=== PATIENT | female | born 1955 | race Caucasian/White ===

== ENCOUNTER 2019-02-16 12:58 | Inpatient (IN) | payer BC ==
[~2019-02-16] VITALS: Ht 157.5 cm; Wt 59.0 kg
[2019-02-16] MEDS ORDERED: ELIQUIS (13:08)
--- NOTE | 2019-02-16 13:15 | NUR ---
Pt has hx of lung CA, had lung drained yesterday, increased SOB since yesterday, Rapid A-fib, c/o severe dyspnea, dizziness, and slight nausea.
[2019-02-16] MEDS ORDERED: DILTIAZEM HCL 25 MG IV ONE (13:29)
[2019-02-16] MEDS ORDERED: DILTIAZEM HCL IV 15 MG in IV DEXTROSE 5% 100 ML IV ONE (13:30)
[2019-02-16 13:34] LABS: ABG HCO3 22.3 mmol/L; ABG PCO2 40.6 mmHg (35.0-45.0); ABG PH 7.357 (7.350-7.450); ABG PO2 220.5 mmHg (75.0-100.0); ABG SITE LEFT RADIAL; ABG TOTAL HEMOGLOBIN 10.8 G/dL (13.5-18.0); MetHb 0.2 % (0.0-1.5); O2Hb 98.6 % (94.0-97.0)
[2019-02-16 13:37] LABS: HEMATOCRIT 31.4 % (36.7-47.1); HEMOGLOBIN 10.5 g/dL (12.5-16.3); LYMPHOCYTES # (AUTO) 0.6 K/uL (20.0-40.0); MEAN CORPUSCULAR HEMOGLOBIN 32.6 uug (23.8-33.4); MEAN CORPUSCULAR HGB CONC 33 g/dL (32.5-36.3); MEAN CORPUSCULAR VOLUME 97.6 fL (73.0-96.2); MONOCYTES # (AUTO) 0.3 K/uL (2.0-10.0); MONOCYTES % (AUTO) 3.5 % (0.0-11.0); NEUTROPHILS # (AUTO) 8.8 K/uL (1.8-8.9); NEUTROPHILS % (AUTO) 90.5 % (38.5-71.5); PLATELET COUNT (AUTO) 337 K/uL (152-348); RED BLOOD CELL COUNT(AUTO) 3.21 MIL/uL (4.06-5.63); WHITE BLOOD COUNT (AUTO) 9.7 K/uL (3.6-10.2)
[2019-02-16 13:46] LABS: CREATININE 0.8 mg/dL (0.6-1.3); POTASSIUM 3.6 mmol/L (3.5-5.1)
[2019-02-16 13:59] LABS: BILIRUBIN,DIRECT 0.1 mg/dL (0.0-0.2); BILIRUBIN,TOTAL 0.3 mg/dL (0.2-1.0); TOTAL PROTEIN, SERUM 8.1 g/dL (6.4-8.2)
[2019-02-16] MEDS ORDERED: FUROSEMIDE 40 MG/4 ML VIAL IV ONE (14:00)
[2019-02-16] MEDS ORDERED: DILTIAZEM HCL IV 125 MG in IV DEXTROSE 5% 100 ML IV ONE (14:00)
[2019-02-16] MEDS ORDERED: DILTIAZEM HCL 25 MG IV IV ONE (14:00)
[2019-02-16] MEDS ORDERED: FUROSEMIDE 40 MG/4 ML VIAL ONE (14:10)
--- NOTE | 2019-02-16 14:27 | NUR ---
Titrated Diltiazem rate to 10mls/hr.
--- NOTE | 2019-02-16 14:30 | NUR ---
Pt c/o "feeling worse," -- very tired and dizzy. informed.
[2019-02-16] MEDS ORDERED: ONDA8TAB6 PO (14:36)
[2019-02-16] MEDS ORDERED: SUCR1TAB31 PO (14:36)
[2019-02-16] MEDS ORDERED: BACL10TA PO (14:36)
[2019-02-16] MEDS ORDERED: BENZ-13 PO (14:36)
[2019-02-16] MEDS ORDERED: PROC-11 PO (14:36)
[2019-02-16] MEDS ORDERED: FOLI1TAB16 PO (14:36)
[2019-02-16] MEDS ORDERED: FLUT1DIS28 IH (14:36)
[2019-02-16] MEDS ORDERED: APIX5TAB PO (14:36)
[2019-02-16] MEDS ORDERED: LEVO75TA PO (14:36)
[2019-02-16] MEDS ORDERED: ESOM40CA PO (14:36)
[2019-02-16] MEDS ORDERED: METO25TA6 PO (14:36)
[2019-02-16] MEDS ORDERED: MAGNESIUM HYDROXIDE 30 ML LIQUID UDC PO PRN (14:45)
[2019-02-16] MEDS ORDERED: BENZONATATE 100 MG CAPSULE PO PRN (14:45)
[2019-02-16] MEDS ORDERED: HYDROCODONE/APAP 5-325MG TABLET PO PRN (14:45)
[2019-02-16] MEDS ORDERED: ACETAMINOPHEN 325 MG TABLET PO PRN (14:45)
[2019-02-16] MEDS ORDERED: Z GUARD REMEDY PASTE 57 GM TUBE TOP PRN (14:45)
[2019-02-16] MEDS ORDERED: BACLOFEN 10 MG TABLET PO PRN (14:45)
[2019-02-16] MEDS ORDERED: Medication Not On Formulary EA (Ondansetron Hcl (Zofran) 8 MG) PO SCH (14:45)
[2019-02-16] MEDS ORDERED: PROCHLORPERAZINE MALEATE 10 MG TABLET PO PRN (14:45)
--- NOTE | 2019-02-16 14:50 | NUR ---
Titrated Diltiazem rate to 15mls/hr.
[2019-02-16] MEDS ORDERED: FLUTICASONE/SALMETEROL 250/50 INHALER IH SCH (17:00)
--- NOTE | 2019-02-16 17:00 | NUR ---
Pt fernandez'ed down to 50's, informed, instructed to stop diltiazem drip, ceased. Pt appears to have converted from A-fib to sinus rhythm around 87bpm. Repeat EKG done and given to .
[2019-02-16 19:30] VITALS: BP 139/77
--- NOTE | 2019-02-16 19:35 | NUR ---
Received pt via lamin in CCU unit RM 4, HOB elevated, awake, AxO x4. DX: CHF EXACERBATION. at bedside. Pt breathing labored and shallow. Pt on nonrebreather mask 10L, O2 sats up to 100%. Tele placed and noted to be SR with HR of 95. Pt denies discomfort or pain at this time. Full assessment completed. VSS, afebrile. HOB elevated at all times. Call light within reach, safety precautions in place. Will continue to monitor closely.
--- NOTE | 2019-02-16 20:00 | NUR ---
at bedside and will stay overnight. Animal Husbandry Teacher aware. Visitor extended stay agreement signed and dated. Will continue to monitor.
[2019-02-16] MEDS: METOPROLOL TARTRATE 25 MG TABLET PO SCH (20:27)
[2019-02-16 21:00] VITALS: BP 161/92
[2019-02-16] MEDS: LORAZEPAM 2 MG/1 ML VIAL IV PRN (21:00)
[2019-02-16 22:00] VITALS: BP 119/73
[2019-02-16 23:00] VITALS: BP 156/77
[2019-02-17] VITALS (23 sets, daily range): BP systolic 94–163; BP diastolic 45–99
[2019-02-17] MEDS: LORAZEPAM 2 MG/1 ML VIAL IV PRN (04:34)
[2019-02-17 05:22] LABS: BASOPHILS % (AUTO) 0.1 % (0.0-2.0); HEMATOCRIT 29.6 % (31.2-41.9); HEMOGLOBIN 9.9 g/dL (10.9-14.3); LYMPHOCYTES # (AUTO) 1.3 K/uL (20.0-40.0); LYMPHOCYTES % (AUTO) 8.4 % (20.5-51.5); MEAN CORPUSCULAR HEMOGLOBIN 32.7 uug (24.7-32.8); MEAN CORPUSCULAR HGB CONC 33 g/dL (32.3-35.6); MEAN CORPUSCULAR VOLUME 98.1 fL (75.5-95.3); MONOCYTES # (AUTO) 1.9 K/uL (2.0-10.0); MONOCYTES % (AUTO) 12.1 % (0.0-11.0); NEUTROPHILS # (AUTO) 12.3 K/uL (1.8-8.9); NEUTROPHILS % (AUTO) 79.4 % (38.5-71.5); PLATELET COUNT (AUTO) 324 K/uL (179-408); RED BLOOD CELL COUNT(AUTO) 3.02 MIL/uL (3.63-4.92); WHITE BLOOD COUNT (AUTO) 15.5 K/uL (3.8-11.8)
[2019-02-17 05:28] LABS: CREATININE 0.7 mg/dL (0.6-1.3); MAGNESIUM 1.7 mg/dL (1.8-2.4); POTASSIUM 4.2 mmol/L (3.5-5.1)
--- NOTE | 2019-02-17 07:00 | NUR ---
Attending physician, DR MELARA, here to see and evaluate patient. Full report given. MD discussed plan of care with pt. Will endorse accordingly.
[2019-02-17] MEDS: LEVOTHYROXINE SODIUM 75 MCG TABLET PO SCH (07:01)
[2019-02-17] MEDS ORDERED: MAGNESIUM SULFATE/D5W 100 ML IV SCH (07:40)
[2019-02-17] MEDS ORDERED: DILTIAZEM HCL IV 125 MG in IV DEXTROSE 5% 100 ML IV PRN (08:15)
[2019-02-17] MEDS: DILTIAZEM HCL 25 MG IV IV PRN ×3 (08:22→14:52)
[2019-02-17] MEDS: FOLIC ACID 1 MG TABLET PO SCH (08:42)
[2019-02-17] MEDS: PANTOPRAZOLE SODIUM 40 MG TABLET.DR PO SCH (08:42)
[2019-02-17] MEDS: METOPROLOL TARTRATE 25 MG TABLET PO SCH ×2 (08:42→17:46)
[2019-02-17] MEDS ORDERED: APIXABAN 5 MG TABLET PO SCH (09:00)
[2019-02-17] MEDS ORDERED: SUCRALFATE 1 G TABLET PO SCH (09:00)
[2019-02-17] MEDS ORDERED: APIXABAN 5 MG TABLET PO ONE ×2 (09:00→17:00)
[2019-02-17] MEDS ORDERED: FLUTICASONE/VILANTEROL 1 EACH BLST.W.DEV INH SCH (09:00)
[2019-02-17] MEDS ORDERED: Medication Not On Formulary EA (Esomeprazole Mag Trihydrate (Nexium) 40 MG) PO SCH (09:00)
[2019-02-17] MEDS ORDERED: FUROSEMIDE 40 MG/4 ML VIAL IV ONE (09:15)
[2019-02-17 09:44] LABS: LYMPHOCYTES % (MANUAL) 10 % (20-40); MONOCYTES % (MANUAL) 18 % (2-10); NEUTROPHILS % (MANUAL) 72 % (42-75)
[2019-02-17] MEDS ORDERED: FUROSEMIDE 20 MG/2 ML VIAL IV ONE ×2 (13:15→21:00)
--- NOTE | 2019-02-17 13:45 | NUR ---
Spoke with Dr. Moody and made aware to see pt for consultation. Full report given to MD. Dr. Olea to follow up with consultation tomorrow.
[2019-02-17] MEDS: DILTIAZEM HCL IV 125 MG in IV DEXTROSE 5% 100 ML IV PRN (15:22)
[2019-02-18] VITALS (24 sets, daily range): BP systolic 77–143; BP diastolic 38–81
[2019-02-18] MEDS: LORAZEPAM 2 MG/1 ML VIAL IV PRN (01:11)
[2019-02-18] MEDS: DILTIAZEM HCL 25 MG IV IV PRN (01:23)
[2019-02-18] MEDS: DILTIAZEM HCL IV 125 MG in IV DEXTROSE 5% 100 ML IV PRN (02:15)
[2019-02-18 06:28] LABS: HEMATOCRIT 28.2 % (31.2-41.9); HEMOGLOBIN 9.3 g/dL (10.9-14.3); MEAN CORPUSCULAR HEMOGLOBIN 32.8 uug (24.7-32.8); MEAN CORPUSCULAR HGB CONC 33 g/dL (32.3-35.6); MEAN CORPUSCULAR VOLUME 99.3 fL (75.5-95.3); PLATELET COUNT (AUTO) 271 K/uL (179-408); RED BLOOD CELL COUNT(AUTO) 2.84 MIL/uL (3.63-4.92)
[2019-02-18 06:39] LABS: CREATININE 0.8 mg/dL (0.6-1.3); MAGNESIUM 1.6 mg/dL (1.8-2.4); PHOSPHOROUS 3.5 mg/dL (2.5-4.9); POTASSIUM 3.8 mmol/L (3.5-5.1)
[2019-02-18] MEDS ORDERED: SUCRALFATE 1 G TABLET PO SCH (07:00)
--- NOTE | 2019-02-18 07:20 | NUR ---
Received report from material handler 2nd shift nurse, patient in bed awake/alert x3, on 10L non-rebreather mask, patient is Afib w/rvr 155 hr, bp 77/55. Bed in low position, side rails up x2, call light in reach.
[2019-02-18] MEDS: PANTOPRAZOLE SODIUM 40 MG TABLET.DR PO SCH (07:57)
[2019-02-18] MEDS: LEVOTHYROXINE SODIUM 75 MCG TABLET PO SCH (07:57)
[2019-02-18] MEDS: BUDESONIDE 0.5 MG/2 ML NEBU NEB SCH ×2 (08:30→19:30)
[2019-02-18] MEDS: FOLIC ACID 1 MG TABLET PO SCH (08:46)
--- NOTE | 2019-02-18 09:00 | NUR ---
Patient seen by Dr. Olea, and Dr. Angela. Refer to notes.
[2019-02-18] MEDS: METOPROLOL TARTRATE 25 MG TABLET PO SCH ×2 (09:02→20:47)
[2019-02-18 09:23] LABS: NEUTROPHILS % (AUTO) 78.7 % (38.5-71.5)
[2019-02-18 09:24] LABS: LYMPHOCYTES % (AUTO) 4.9 % (20.5-51.5); MONOCYTES % (AUTO) 16.2 % (0.0-11.0)
[2019-02-18 09:25] LABS: BASOPHILS % (AUTO) 0.1 % (0.0-2.0); EOSINOPHILS % (AUTO) 0.1 % (0.0-7.0); NEUTROPHILS # (AUTO) 10.8 K/uL (1.8-8.9)
[2019-02-18 09:26] LABS: LYMPHOCYTES # (AUTO) 0.7 K/uL (20.0-40.0); MONOCYTES # (AUTO) 2.2 K/uL (2.0-10.0)
[2019-02-18 09:34] LABS: LYMPHOCYTES % (MANUAL) 1 % (20-40); MONOCYTES % (MANUAL) 16 % (2-10); NEUTROPHILS % (MANUAL) 83 % (42-75)
[2019-02-18] MEDS ORDERED: DIGOXIN 500 MCG/2 ML AMP IV ONE (09:45)
[2019-02-18] MEDS: MAGNESIUM SULFATE/D5W 100 ML IV SCH ×2 (10:19→11:14)
[2019-02-18] MEDS: APIXABAN 5 MG TABLET PO SCH ×2 (10:21→16:45)
[2019-02-18 12:13] LABS: *BLOOD, URINE 1+ (NEGATIVE); *COLOR,URINE YELLOW (YELLOW); *KETONES,URINE NEGATIVE (NEGATIVE); *UROBILINOGEN,URINE 0.2 E.U./dl (NORMAL); LEUKOCYTE ESTERASE ,URINE TRACE (NEGATIVE); NITRITE, URINE NEGATIVE (NEGATIVE); PH,URINE 5.5 (5.0-8.0); UGLUCOSE NEGATIVE (NEGATIVE)
[2019-02-18 12:17] LABS: *BILIRUBIN,URIN 1+ (NEGATIVE)
[2019-02-18 12:19] LABS: *CLARITY,URINE CLEAR (CLEAR)
[2019-02-18 12:23] LABS: MUCUS,URINE MODERATE /LPF (0-FEW); SQUAMOUS EPITHELIAL CELL,UR FEW /HPF (NONE SEEN)
[2019-02-18 12:24] LABS: BACTERIA,URINE FEW /HPF (NONE SEEN)
--- NOTE | 2019-02-18 12:40 | NUR ---
Patient was seen by Dr. Garvey and discussed in length the plan with patient and family.
[2019-02-18] MEDS: ENSURE WITH FIBER 237 ML LIQUID (CHOCOLATE) PO SCH ×2 (13:04→18:02)
[2019-02-18] MEDS: FUROSEMIDE 40 MG/4 ML VIAL IV SCH ×2 (14:06→20:47)
--- NOTE | 2019-02-18 14:20 | NUR ---
Contacted Dr. Angela regarding patient declining blood pressure, and urine results and decline in urine output. Received orders for lactic acid and rocephin 1g daily. No other orders received.
[2019-02-18] MEDS ORDERED: CEFTRIAXONE 1 G VIAL IM SCH (14:30)
--- NOTE | 2019-02-18 15:09 | NUR ---
received call from Dr. Olea, reported Ultrasound results.
[2019-02-18] MEDS: AMIODARONE HCL IV 900 MG in IV DEXTROSE 5% 482 ML IV PRN ×2 (15:17→16:45)
[2019-02-18] MEDS: CEFTRIAXONE 1 G in IV DEXTROSE 5% 50 ML IV SCH (15:17)
[2019-02-18] MEDS ORDERED: DIGOXIN 500 MCG/2 ML AMP IV SCH (16:00)
[2019-02-18] MEDS ORDERED: AMIODARONE HCL IV 150 MG in IV DEXTROSE 5% 100 ML IV ONE (17:15)
[2019-02-18] MEDS ORDERED: BACLOFEN 10 MG TABLET PO PRN (18:15)
[2019-02-18] MEDS ORDERED: BENZONATATE 100 MG CAPSULE PO PRN (18:15)
--- NOTE | 2019-02-18 19:22 | NUR ---
Gave report to shift stacker nurse, patient in bed awake/alert x4, patient continues to be on oxygen NC 5L, cardiac rhythm is afib 127 with amioderone drip @1mg, bed in low position, side rails up x2, call light in reach. Dr. Olea anticipates a thoracentesis tomorrow and all anticoagulation is to be held. [facility] possible transfer information given to oncoming nurse.
--- NOTE | 2019-02-18 20:00 | NUR ---
RECEIVED PT. AWAKE. ALERT & ORIENTED X4. DENIES PAIN THIS TIME. ON O2 @ 5LNC W/ HUMIDIFIER W/ O2 SAT OF 97%. ON AMIODARONE DRIP @ 1MG/HR ON MITCHELL PICC LINE. 2 PORT ARE PATENT.AFIB UNCONTROLLED. AFEBRILE. BP STABLE. NOT IN ANY DISTRESS.
--- NOTE | 2019-02-18 20:16 | NUR ---
Pt's refused HHN tx and want to talk to MD in the morning. JERRY kiran.
--- NOTE | 2019-02-18 22:00 | NUR ---
ASSISTED PT TO THE COMMODE. BRET CARE DONE BY HERSELF. REPOSITIONED IN BED FOR COMFORTS.NOT IN ANY DISTRESS.
--- NOTE | 2019-02-18 23:00 | NUR ---
[facility] CALLED THAT THERE IS NO AVAILABLE BED.
[2019-02-19] VITALS (23 sets, daily range): BP systolic 87–121; BP diastolic 44–63
[2019-02-19 04:58] LABS: BASOPHILS % (AUTO) 0.2 % (0.0-2.0); EOSINOPHILS # (AUTO) 0.1 K/uL (0.0-0.7); EOSINOPHILS % (AUTO) 0.8 % (0.0-7.0); HEMATOCRIT 26.6 % (31.2-41.9); HEMOGLOBIN 9.1 g/dL (10.9-14.3); LYMPHOCYTES # (AUTO) 0.9 K/uL (20.0-40.0); LYMPHOCYTES % (AUTO) 9.1 % (20.5-51.5); MEAN CORPUSCULAR HGB CONC 34 g/dL (32.3-35.6); MEAN CORPUSCULAR VOLUME 96.6 fL (75.5-95.3); MONOCYTES # (AUTO) 1.7 K/uL (2.0-10.0); MONOCYTES % (AUTO) 16.6 % (0.0-11.0); NEUTROPHILS # (AUTO) 7.4 K/uL (1.8-8.9); NEUTROPHILS % (AUTO) 73.3 % (38.5-71.5); PLATELET COUNT (AUTO) 273 K/uL (179-408); RED BLOOD CELL COUNT(AUTO) 2.76 MIL/uL (3.63-4.92); WHITE BLOOD COUNT (AUTO) 10.1 K/uL (3.8-11.8)
[2019-02-19 05:03] LABS: CREATININE 0.8 mg/dL (0.6-1.3); MAGNESIUM 1.8 mg/dL (1.8-2.4); PHOSPHOROUS 2.7 mg/dL (2.5-4.9)
--- NOTE | 2019-02-19 05:30 | NUR ---
PT. SLEPT WELL. REMAINS ON SR W/ BBB. AMIODARONE DRIP STILL @0.5MG/HR. OFFERED AM CARE STATED LATER. NOT IN ANY DISTRESS.
[2019-02-19 06:14] LABS: BAND % (MANUAL) 1 % (0-10); EOSINOPHILS % (MANUAL) 2 % (0-8); LYMPHOCYTES % (MANUAL) 6 % (20-40); METAMYELOCYTES % 1 % (0-1); MONOCYTES % (MANUAL) 10 % (2-10); NEUTROPHILS % (MANUAL) 80 % (42-75)
[2019-02-19] MEDS: LEVOTHYROXINE SODIUM 75 MCG TABLET PO SCH (06:18)
[2019-02-19] MEDS: PANTOPRAZOLE SODIUM 40 MG TABLET.DR PO SCH (06:42)
--- NOTE | 2019-02-19 07:20 | NUR ---
Received report from manufacturing technology analyst nurse, patient in bed awake, no distress noted at this time. Patient is on 02 4L nasal cannula saturating 97%, IV amioderone running @0.5MG/HR. Patient is in Sinus rhythm with BBB Rate of 89. Bed in low position, side rails up x2, call light in reach.
[2019-02-19] MEDS: BUDESONIDE 0.5 MG/2 ML NEBU NEB SCH ×2 (07:30→20:35)
[2019-02-19] MEDS: ONDANSETRON 4 MG/2 ML VIAL IV PRN (07:34)
--- NOTE | 2019-02-19 07:45 | NUR ---
Patient up at commode with a BM x1, and upon return to bed had an episode of emesis x1, zofran given.
--- NOTE | 2019-02-19 07:58 | NUR ---
Patient seen by Dr. Olea and was explained the thoracentesis process.
[2019-02-19] MEDS: FUROSEMIDE 40 MG/4 ML VIAL IV SCH ×3 (08:41→21:00)
[2019-02-19] MEDS: FOLIC ACID 1 MG TABLET PO SCH (08:41)
[2019-02-19] MEDS: METOPROLOL TARTRATE 25 MG TABLET PO SCH ×2 (08:42→20:35)
--- NOTE | 2019-02-19 08:45 | NUR ---
Patient seen by Rodger Harris.
[2019-02-19] MEDS: APIXABAN 5 MG TABLET PO SCH ×2 (08:48→17:00)
[2019-02-19] MEDS ORDERED: DIGOXIN 125 MCG TABLET PO SCH (09:00)
[2019-02-19] MEDS: ENSURE WITH FIBER 237 ML LIQUID (CHOCOLATE) PO SCH ×3 (09:31→17:20)
[2019-02-19] MEDS: PROCHLORPERAZINE MALEATE 10 MG TABLET PO PRN (10:55)
[2019-02-19] MEDS: NYSTATIN SUSPENSION 5 ML LIQUID UDC PO SCH ×3 (10:55→20:34)
--- NOTE | 2019-02-19 11:40 | NUR ---
Thoracentesis performed by Dr. Lovell and [facility]. 1L of fluid removed and three specimens sent to lab as ordered.
[2019-02-19] MEDS ORDERED: POTASSIUM CHLORIDE 20 MEQ TAB.PRT.SR PO ONE (11:45)
[2019-02-19] MEDS: AMIODARONE HCL 200 MG TABLET PO SCH ×2 (14:02→21:14)
[2019-02-19] MEDS: POTASSIUM CHLORIDE 10 MEQ, LIDOCAINE-MPF 1% 1 ML in IV DEXTROSE 5% 100 ML IV SCH ×2 (14:28→15:44)
[2019-02-19] MEDS: CEFTRIAXONE 1 G in IV DEXTROSE 5% 50 ML IV SCH (15:45)
--- NOTE | 2019-02-19 19:30 | NUR ---
Report received. Patient admitted 02/16/2019 for CHF exacerbation. AAO, assisted up to [facility]; voided. Back to bed and brushed her teeth without SOB or dizziness. Patient states she's feeling better after today's thoracentesis. O2 4 L NC continuously. Assessment done; see flow sheet for completed data. Addendum: 02/19/19 at 2205 by BONNIE RODRIGUEZ RN Amended: Links added. Addendum: 02/19/19 at 2212 by BONNIE RODRIGUEZ RN Amended: Links added. Addendum: 02/19/19 at 2215 by BONNIE RODRIGUEZ RN Amended: Links added. Addendum: 02/19/19 at 2219 by BONNIE RODRIGUEZ RN Amended: Links added. Addendum: 02/19/19 at 2220 by BONNIE RODRIGUEZ RN Amended: Links added.
--- NOTE | 2019-02-19 19:33 | NUR ---
Patient currently in bed resting, no distress noted at this time. Patient oxygen saturation 99% on 4L nasal cannula. Call light in reach, bed in low position, side rails up x2. HR stable sinus rhythm with bundle branch block 90 bpm. All needs met. Report given to smith shift nurse. BP 102/54.
--- NOTE | 2019-02-19 20:20 | NUR ---
PCXR done. Addendum: 02/19/19 at 2212 by BONNIE RODRIGUEZ RN Amended: Aria added. Addendum: 02/19/19 at 2214 by BONNIE RODRIGUEZ RN Amended: Aria added. Addendum: 02/19/19 at 2218 by BONNIE RODRIGUEZ RN Amended: Links added. Addendum: 02/19/19 at 2220 by BONNIE RODRIGUEZ RN Amended: Links added.
[2019-02-19] MEDS: DOXYCYCLINE HYCLATE 100 MG TABLET PO SCH (20:34)
--- NOTE | 2019-02-19 21:00 | NUR ---
Refused dose of Lasix IV; med was discarded as it was already drawn up. Addendum: 02/19/19 at 2219 by BONNIE RODRIGUEZ RN Amended: Links added. Addendum: 02/19/19 at 2220 by BONNIE RODRIGUEZ RN Amended: Links added.
--- NOTE | 2019-02-19 21:20 | NUR ---
Results of CXR called to Dr. Otero. Informed of another CXR in am and patient's status. Also made aware that patient refused Lasix dose for tonight. No new orders. Addendum: 02/19/19 at 2215 by BONNIE RODRIGUEZ RN Amended: Links added. Addendum: 02/19/19 at 2219 by BONNIE RODRIGUEZ RN Amended: Links added. Addendum: 02/19/19 at 2220 by BONNIE RODRIGUEZ RN Amended: Links added.
--- NOTE | 2019-02-19 22:20 | NUR ---
Sleeping at intervals. VS stable. at bedside. Addendum: 02/19/19 at 2220 by BONNIE RODRIGUEZ RN Amended: Links added.
--- NOTE | 2019-02-19 23:30 | NUR ---
Juanita EDWARDS from [facility] called. No bed available yet. Patient and patient's informed. Addendum: 02/20/19 at 0003 by BONNIE RODRIGUEZ RN Amended: Links added.
[2019-02-20] VITALS (24 sets, daily range): BP systolic 90–121; BP diastolic 25–65
[2019-02-20 04:58] LABS: BASOPHILS % (AUTO) 0.3 % (0.0-2.0); EOSINOPHILS # (AUTO) 0.2 K/uL (0.0-0.7); EOSINOPHILS % (AUTO) 2.4 % (0.0-7.0); HEMATOCRIT 27.4 % (31.2-41.9); HEMOGLOBIN 9.1 g/dL (10.9-14.3); LYMPHOCYTES % (AUTO) 12.1 % (20.5-51.5); MEAN CORPUSCULAR HEMOGLOBIN 32.4 uug (24.7-32.8); MEAN CORPUSCULAR HGB CONC 33 g/dL (32.3-35.6); MEAN CORPUSCULAR VOLUME 97.5 fL (75.5-95.3); MONOCYTES # (AUTO) 1.3 K/uL (2.0-10.0); MONOCYTES % (AUTO) 16.4 % (0.0-11.0); NEUTROPHILS # (AUTO) 5.5 K/uL (1.8-8.9); NEUTROPHILS % (AUTO) 68.8 % (38.5-71.5); PLATELET COUNT (AUTO) 287 K/uL (179-408); RED BLOOD CELL COUNT(AUTO) 2.81 MIL/uL (3.63-4.92)
[2019-02-20 05:08] LABS: CREATININE 0.8 mg/dL (0.6-1.3); MAGNESIUM 1.6 mg/dL (1.8-2.4); PHOSPHOROUS 2.7 mg/dL (2.5-4.9); POTASSIUM 3.4 mmol/L (3.5-5.1)
[2019-02-20] MEDS: IV NORMAL SALINE 250 ML IV PRN (05:46)
[2019-02-20] MEDS: LEVOTHYROXINE SODIUM 75 MCG TABLET PO SCH (06:26)
[2019-02-20] MEDS: PANTOPRAZOLE SODIUM 40 MG TABLET.DR PO SCH (06:26)
--- NOTE | 2019-02-20 07:00 | NUR ---
VS Stable. Sat maintaining above 95% on 4 L NC. Up to BSC with assist.
[2019-02-20] MEDS: ONDANSETRON 4 MG/2 ML VIAL IV PRN ×2 (07:20→14:26)
[2019-02-20 07:23] LABS: BAND % (MANUAL) 3 % (0-10); EOSINOPHILS % (MANUAL) 3 % (0-8); LYMPHOCYTES % (MANUAL) 16 % (20-40); MONOCYTES % (MANUAL) 18 % (2-10); NEUTROPHILS % (MANUAL) 60 % (42-75)
[2019-02-20] MEDS: BUDESONIDE 0.5 MG/2 ML NEBU NEB SCH ×2 (07:29→19:50)
--- NOTE | 2019-02-20 07:30 | NUR ---
PT.IN BED ,A/A/O NO S/S OF ACUTE DISTRESS,DENIES ANY PAIN.
--- NOTE | 2019-02-20 08:00 | NUR ---
Pt.was seen by with new orders, family at bedside,was updated with pt.condition and plan of care.
[2019-02-20] MEDS: NYSTATIN SUSPENSION 5 ML LIQUID UDC PO SCH ×4 (08:01→20:59)
[2019-02-20] MEDS: PROCHLORPERAZINE MALEATE 10 MG TABLET PO PRN ×2 (08:01→16:41)
[2019-02-20] MEDS: DOXYCYCLINE HYCLATE 100 MG TABLET PO SCH ×2 (08:02→21:00)
[2019-02-20] MEDS: APIXABAN 5 MG TABLET PO SCH (08:03)
[2019-02-20] MEDS: ENSURE WITH FIBER 237 ML LIQUID (CHOCOLATE) PO SCH ×3 (08:04→16:43)
[2019-02-20] MEDS: FOLIC ACID 1 MG TABLET PO SCH (08:06)
[2019-02-20] MEDS: FUROSEMIDE 40 MG/4 ML VIAL IV SCH (08:06)
[2019-02-20] MEDS: AMIODARONE HCL 200 MG TABLET PO SCH ×2 (08:06→20:59)
[2019-02-20] MEDS: METOPROLOL TARTRATE 25 MG TABLET PO SCH ×2 (08:07→20:59)
[2019-02-20] MEDS: POTASSIUM CHLORIDE 20 MEQ TAB.PRT.SR PO SCH ×2 (08:19→16:43)
[2019-02-20] MEDS: MAGNESIUM SULFATE/D5W 100 ML IV SCH ×2 (08:19→09:19)
--- NOTE | 2019-02-20 12:26 | NUR ---
Pt.watching TV ,reading ,denies any discomfort or CP,no s/s of SOB.
[2019-02-20] MEDS: CEFTRIAXONE 1 G in IV DEXTROSE 5% 50 ML IV SCH (14:19)
--- NOTE | 2019-02-20 14:34 | NUR ---
Pt.sleeping,no s/s of distress.
--- NOTE | 2019-02-20 17:00 | NUR ---
Post sponge bath,tolerated well. SOB on exertion noted.
--- NOTE | 2019-02-20 18:22 | NUR ---
Family at bedside ,watching TV.
--- NOTE | 2019-02-20 19:30 | NUR ---
Patient AURELIA NAD noted; on 6L NC O2. Saturations 99-100%. Plan of care discussed. Patient c/o that the Vibramycin po is causing her stomach upset that she can not eat. Patient reassured that her concerns will be discussed with MD. Assessment completed; see flow sheet for details. details.[id number]14810497918647440102418769 78554705227188614937155997065589184633476096599503772174222826329434661253978338458306936299 51273857905188971013502405365692778999454918597401331827873128967153588981826880172924977620 07074693186143731529602384619660461549031952535856924669564407823995202192616881654719721078 73768423711421390651460939569818828456531892982976913049019609992881112631408660819633367249 46114679652845497025273627537954604548701627562053248633755785163833449395629069237723371504 34873846262919127099075782180129055802350245435173786061012315270161231038058335571867849545 75319321216576634337842382288398764451091330437392249550845775509003106844029935701369478340 39169751092906578111956767864124126317467786451645914421528370231092169348835262403426622438 50386469624086916261695967682098343416593413352120073759046851377578852469165144613848279197 38635375006084396745131521978250733905018484221858169393790231882485407606771789272652705762 25161974515922570225807868200177304052322145891441290343839283588510409504098457714160094142 31101522853828809710939045487691719345332221568867087764916221309722021410448029375564155148 58813323958800993913368714296200909961499512422793227922145421408705311804952768012661868053 00075586967062789310786093324346205785711516150629070816646880067839010762632593862702433723 36075894175785057335227710969529721121365830602958344394431145978398035242679155536625544737 41107621553117622080217925144724746189361867589204917908728997644439552876480022313590379304 74836736617076825330890741235112577475002029200274288674762867039559898751716098892702807898 64693386967450414784613321847544633570633355127581944907108651181997457535270019165124797466 85789692039418145732114244148197070412770959001162605434589918727478985216778881403828727476 67747713608073558899188624156130929666668957451636472258064226879853725539024871332620269651 48054232291363815936424951247936744839434709927671086920045805144890190420973120173107905446 40757946214453201687977823149062334735898619139577628706535852626923122074788231312654069957 03044315094274071531364964037312296755797708379947641851798119326455746243096125062900311317 56042222150944937173639062473439785863907758422017382894244718187670206822697174392499796049 83361289676282608065289369903766141989609776786434950758037909225664725461374256026753394666 21799843900369427683784256429724902843532930347430078839413441815540203912273939611304453468 81413675294787857454416872341892345263078773061570382893895330541932764488318069877154991061 22530187349458377131528746656673455367153969832495687427357329511703546920961847643987686171 44483565740974461213163780525261078080032836570842200382744169663518452384556267871408525716 24131050435623294133900665215356256994237901858656428695620709389525984813226055612329541177 40875659361508122318206244810735356224562959317001331467943084664893428813494255889631136657 94728766758562554499660703676325682925847770580874264100126200932658924559362401706066654808 59728230612066921042307607039337681485268047258626909096123614673378038200722398035236298319 02618577748215721256131637817437238493012418956096923618302356381151545848125332460982836505 87556899023523043970601524249228124241327084383215622309286482379849224724046083960536845877 84672527752702673200906528024609801438342893260080417091143631040169288324621956316279901679 27454483265974782653736612196633162059701225740173314112511945093147379273087475439176753916 97072903481206328782798704469121053858201771049692244008849394913836306360094096858351652008 09924886078973897530911227332851585768663135282400636223022791447328228754252294015609884477 31497851456433837063105530638832879373439167669621331694301019124472998478378892203947794340 60520336468012728365331636887090680072072139411933729698365675764022648028960861636776463509 44993589579266667603238465946495189771468718003230788296997525255658578231916103289916943929 76350357600945907131008269600529437895940933647848057934582779122540029057263711381967368677 97712447516132134995991106465230514371150112864220371368240094048379631404968609037224182978 00497768655254908167920401529970543658930426684181464015967591299805951610217815158055171799 66138388757687210120911454638057574177223755435365331950283295137750979066916505733714606152 17381174509557365967633815415522851608389885798494411334502139887776260900757474480420892882 48421742376846887766789991266121948192033365597192277925893399818125938597661590975079320652 53332718109682416623694726050339977497529549554930221631526074880014922480998812786940729600 37627633871830202018526182443295380381643581574280669427155454841804589868655449876918845203 35311119284749717501299479464226652533227632337159324908917781360647487227768158108508172538 67700722416794346043068546217430389464723111094962969912281612204699451152560793318627100394 11166302595555954595218001038773737451526152369561337532187545091474025142443902891572846792 77811588931493758775843414337227155795820594384701745440431491437525924896708171070067326169 27886198547045086256896382227325491492663042839227092870289888037601186961993934799772353684 55645543665254671800908808013679337717836759717871157699474831915615196893235415813088026368 95290745180960552604199864413964156500349219659278212075408822092552521876256448449007150365 48906842934689123563296715078611657234612933459953253315265290877802034660424507496598041721 88021805105181850186963883310811708467954922597795721375747600880675760282674270270610837566 41331427166089537518190616232942623458198379822154546117633866977838363358159985906684674604 06972885479637058911529692371913273841579161693113252547364556792454205114497436577368599973 82360388461446048198210923049438232596910369710398203804480295603306350309062962745662928338 10323920789375862387913101568702831577358451910625104508877483773868972966818666785414563127 64450034573703607876226058124885045021416536589202782259928623295237302566838958624736269351 45580631381323915468739532876868021915635157458119889103608794906975915010863176285712975933 46451480603233636930733459262860970729725445447910558912919767732577026960919285875808851708 70381388371833387707525574319093550402964701287782165376512082586743024967953735014586644067 21387717419910418074774378926806415127240001277537666871637210730780670562408321927551732204 82624129295493212753107464420394926080853602383468743521510626680029967202215254321345525574 98783936809787995850736646714854829890949795602409591388470642559803076848644218114154061198 74236559342401466607865958583436134767786645850100284266127596084241985839908550627706714475 49059668524840084916977042965417350361523037799008507329776529574757679424562207333908436398 68012128730927823031606368285207193950232360381031542155352921982746501426906044769935939538 77457485494190446434071817170051583808974829484690965085264672606148520128375984879240326252 95583141068051936335506452377634475663520280319018734120965746598268128409289336554313685793 18655710277562298862252463726882377889910949007892000963414957284569828647217261662974019090 82713974286279739792944059237431182345425797975995566104676561875697874073294614764694981808 27216683481897574531082359523781955003746558316396931628174108303643843003489348876099339584 38111596845315840180602531802185946396324613014634825968995852642024042215165202556033723226 77835318794815982436249580026739109905099728396438477724683820786412559896061373367571182849 82834196850800151981854596668459854870531267944914732260544279289466702146168223644074953212 19092667942382706493079910115743090764212383894377964134912847545284420888649058611486128135 79558515157659094606170847269760098717856032894910170937298850343415859022819147551873640747 39316058502146138316244645419465291994199216406413309163075652106028184144035379819222478798 65433496826655756085990329937410773316831369152248376520949942456286348005755432091568901800 06358153391169974914882071116069667456702780822019631889842657777334720688322188539219398298 47538154702221974657052050624729072935852301357135078703970641254057514715677689393774382369 22425009150256508758383302375147396741604902558671958885892846693396244733393310649987640365 43353279913902873077802140538398300247028772543059588326319921594746212664588662202553715623 99433298489697536433890184027616824610555896495159215180103686637072484181638222008960539076 71838802688270268613501333937601010344726417553228168026565135528452145929484836665038940537 24880690420082923692127430077461924975535750625689872793122347982378469757620561050550814511 84524932745758169265930893193721294178393426132639989100051544222858884196339901761829398188 37228233367041433676218591454090821728273199201682454350750608360798636314338305009772637335 92461401199626953382318265113705588061183258677206960379743837662372590479783794621234495978 17567623969648486042955943983396292990655780867907831971067488241114772162470386292727935904 24305102789038920957663312074370655878829216207141788726348685225194248383084051383917484495 14170403412418620127228052753723890074239009325904291881632390350147434937983971727397151453 79916543040348430109521845397437900538708261128934819982933998088032265494577731950679068650 22912853052712074748422528673408148468781091516272243924559471628408634103745350980680198503 91237192465697785203236384829543766131157448269286216519609013636923164920350167014682254002 11768910697338196853462266830232360303372931671385641097750116745133066381275481602981870730 95195107125667910347823249675797431496338867013116538525616119945207055863575252415988115913 08558697703540915984938637481828517054029817700132729802411305433164588431623592704545382667 86613849132786334592570390097139759755886960756736783139466560601403018530607523197208359402 18551820444131984326779941368200034235660142809283597123943545578016537016835234621758458377 55435273785846274552323238827991970303297741843012994863821949596390871653514016695603057368 99963449382250931486175434553307057250559574259272412672883265642322180146811650373615138061 40801584026295406647952446488911480597353041529089718244345689160312145750942715042981577967 18055228027152368803985212756577383029066834883413396458353484331066592118598396022128780554 02562781280345451028675032437064248279956144275270413418654135610077597403117215467297528100 08153391882720259808026103717246470237148791854674155720962344532510891260697019642269792648 04598158275666596794519575664578119847586930312723460349816910387065037966743567070509326231 78236095933564731619310534545743677641494486058274389090935908521926165444424156979840626717 88992395157810360982414203081765775855472881264124009648528597513305637134241832237500933381 55252401794355136811436830404029448461790355119718810271165576470863740002982205502496713999 12957703633966163742697155218293287596792351687324100132295230673077386288439821082952699512 87976795495358183313258877966269484363853329534060296097838880507339341145561732564173414344 88877341598883841021273450258825745975572340962947277703024755955600477974105851193873803519 26236034803121839978488701997573215209945368439252334568668081716526736291586787823919155060 29154887884200284207790712491844972741287348746442905023046936737936617259013386978757494998 78913808751686332150381372843776753340820748874981829318824637918477311707432957597790184437 65692024344378512901255161636328862513586982921573048028876560688550363894085981064915846050 12875396692465323414064252818920612679387826531328685453326621013348330175991669548733781312 98107456765479120758454286730247399714147604566239215736911884380829548500939485134800207884 00802260694785731173741045632081775019719819855531824592087244468470663068959975430699214969 25742269466042222099160074803770221605439460061960172048722623735384430917010426327077822356 46967306924956772070079078165095251743864429428313278730892510114245561280741321909777184150 54897041128734703400011344390964706712840499490087419772850997580222031687180129014969731777 17645910169712101156627689480996583007770907419802884517367623580812210805305530332150136676 63055166931472093940424625992836434829321222074128256063266353338475297698481049094349299429 25707659252107264442255787901966472977737919134618959353577149751090665493398382464551574492 17003985767634378343040303656611974445605063042049660456540873761157165616704166482272348412 56613762626584682130893857452270776688882332836726110370893118911132146620072477307203778428 46336211831661369709332338234742055806231356427039836033815112693757693556776521610184421309 06367409138243250487960941106239725531536595722409148307414085425146079963428709237527630845 43343643401337457105399708361191573781368702201947899120020964895620949630177119202945352340 72758590645236254584175619497674140505934140316452486042225916083433454291995389784547972765 02828072610670760129616025998103563746727736974404522555462076549219104846003293123961011684 59872302245618666425390123164732056656148634225058500222482446517670711058168370088710877543 18383762688534182434961018384886475688040922280891158909115690692525419872028717560152831200 53875376616318505880988195843771249509582442172113203054364756545694272211797207314071892773 70996366589869216318167265113379044929362038057910009462869121407747859287815551636131432451 60122090980759563185985774173891799272750968804732104350006999347361826748151988094516282781 11675948105118811238983824823640853530856623933612053270081410214406417292725668036755291909 82599970020916730862057586548530372489532537082376318766852869550518090193427151197181971303 14557698146979159209197428571976679487810533475702847435776709002196579266284813508787077334 37759266086876286005877724771553029877827105526170672611118601994438382049604005123075524801 00965667379441551290187087302537241702760983390523556892436658269264421180396705055534219987 70391873531969761735740261079583340826316846089587456173111688532486105235621672755728803783 22116973008641766682574672832868714050273893747177688224002180845958873130564459706183695967 27945491685103985964508969106044852080212352320008553496060254691654427416184743539143355301 66510613402887280212052564200751589404364845384108623918621918347705668377686661460628925176 33374808037831320639596133652101462793373360092338174401969905692807385766780565993279362165 86819289014641918276259725544395664863155595036022549988627762155636211263710581604165713983 30563242275992716266897974657219178862269861699419738525949695425604790609948823031482821246 87146762630397569304225947777810004237789812352895507563654167697103408004954467971766690558 89532557192936201432551616580625175234471217056401764603306376371789071963501281147142222784 49566047205684225576610592590797834924095435514315140855404481107694675600497434728797187697 68373966405137687238031259818134069692459569815431371364729978593340641673571540596668907946 60925680937644481320498812516185445673502757819894750187461968969899690898991218274337785504 22371698354238289775156404148519593165315942732424346358761675024751123568502676173689084248 56981058992961169907647463447286482264212464707521130667366974735486948059010948634949099213 11577702222681614003080118177458307096783169197347758037437543742948162082963075183672507500 71586362433748207412317155946276146649346948967949222936962822963167899341795685640704490740 33229758768708860586853663546019629682466020848590330560985447433203761175505958468910031361 94374435637453100775379415346464711174332046996287014080468952900029780503459128866033109424 00628377391257366747454054551177825754331941413826069529891826702084989200649223348756658164 64817166963593798807707860841979033979784256945405759855101661614322046316285575986657231477 56132147709315637812213720488596669235635804010035611090320715092682516146781043026237379443 95969893130352724744133279343365135080808688401592134789746604483292467825855118393658001179 03756900986711190851986885795824732783710134435313472214184783871471896472267033711842853140 79683862798979719878126007722059096034722632295348979928874794335748475043293906033831272095 25881985302078287055978214852367043874020066650052227112891350066834968717780471232997248421 97077821429444921663550176950641236349100676718833497689505954665265993289900313796628423446 68045909635423857865334500950940279401283740102068363107533424159356654863032099063827555218 55741096122342352405617921706545361730772386635297981598964942508352297576497348230024105941 50194718395285610962548565837701498373190953511264533978933747015255170443227905035641373771 04334855004979343815016230858769542170159606469585714192208214298171973929201984965763124913 65943302670366619583885341053321995592139894342658869092378729873850653833201873514725998540 73051441054072403964481169086909595087970767044735724179664527097458405273040542250699507649 99116800560317590748160153268710403003350750478238257919782384635084188652849419300322764699 32699847140278446769796488983511671349541700946465176227312538639862596389687734796713787604 01654460575938763598308322085870970848996412779590002245862096235648434209551805062307835870 83873622518675397672976428061527666914833839887725561299647627867563229398654557280284772401 46990845900567534536241245877742756036200922278697004471393959335951057233296914333602685400 67934758445203547445036794437057560318828574003573590151564743418400973332627333865749782243 21806922426861729913119122451448362758081936146515843405707500061660892983974710746018531072 09211572052931233988838856729738869274231758588832714904234550310894861511043471610366296532 48000936529568857524253651109454582686724894528239769989179368296892657866642161792827536322 59285249634306346677957879072341508374697310758949387794989420301975045036908198702072692690 46948459645029909489434622843087996366136975752561399911359240730765046501791124055834952102 86312769500518297608662573473799081254713489927890728438594148681387720590412101240337132922 84658203923913290182079419561837179032880139991076431407215707866824118165747595580344974567 05100733770327980445667202303920114840975408920702249860022141805397656353155302930450572896 70647452580672930014870097665966310372120065919706931337150375603993372371107734256502465080 90688874147156067356730792143045445501554009370266717904304473996532278613856194507077099994 80916107596972537297482360837861149062360094906934092614196865675272143172504616111710996593 90859617087142637655797522258200192537437354523336454412575986427132624985521983896025080926 04647721697209900363958190169412520127972307341531131690456196238536223173457870760487770354 76077510651731957342768589584748874154393772554902[id number] Addendum: 02/20/19 at 2215 by BONNIE RODRIGUEZ RN Amended: Aria marx. Addendum: 02/20/19 at 2218 by BONNIE RODRIGUEZ RN Amended: Links added.
--- NOTE | 2019-02-20 20:20 | NUR ---
Spoke to Rodger Harris re: patient's request not to take Vibramycin po tonight because it causes her to have GI upset. He okayed to skip dose tonight and he will review med in am. Rodger also informed of CXR result; no change in pneumothorax. Addendum: 02/20/19 at 2032 by BONNIE RODRIGUEZ RN Amended: Links added.
--- NOTE | 2019-02-20 20:30 | NUR ---
Seen by Dr. Walter; plan of care discussed. Addendum: 02/20/19 at 2218 by BONNIE RODRIGUEZ RN Amended: Links added.
[2019-02-20] MEDS ORDERED: FUROSEMIDE 40 MG/4 ML VIAL IV SCH (20:45)
[2019-02-20] MEDS: CULTURELLE CAPSULE PO SCH (20:59)
[2019-02-21] VITALS (22 sets, daily range): BP systolic 92–140; BP diastolic 44–86
--- NOTE | 2019-02-21 | NUR ---
Sleeping on and off. VS stable.
[2019-02-21] MEDS: IV NORMAL SALINE 250 ML IV PRN (04:24)
[2019-02-21 05:00] LABS: BASOPHILS % (AUTO) 0.4 % (0.0-2.0); EOSINOPHILS # (AUTO) 0.3 K/uL (0.0-0.7); EOSINOPHILS % (AUTO) 3.8 % (0.0-7.0); HEMATOCRIT 26.1 % (31.2-41.9); HEMOGLOBIN 8.7 g/dL (10.9-14.3); LYMPHOCYTES # (AUTO) 0.9 K/uL (20.0-40.0); LYMPHOCYTES % (AUTO) 12.8 % (20.5-51.5); MEAN CORPUSCULAR HEMOGLOBIN 32.3 uug (24.7-32.8); MEAN CORPUSCULAR HGB CONC 33 g/dL (32.3-35.6); MEAN CORPUSCULAR VOLUME 96.8 fL (75.5-95.3); MONOCYTES # (AUTO) 1.4 K/uL (2.0-10.0); MONOCYTES % (AUTO) 18.6 % (0.0-11.0); NEUTROPHILS # (AUTO) 4.7 K/uL (1.8-8.9); NEUTROPHILS % (AUTO) 64.4 % (38.5-71.5); PLATELET COUNT (AUTO) 298 K/uL (179-408); WHITE BLOOD COUNT (AUTO) 7.3 K/uL (3.8-11.8)
[2019-02-21 05:40] LABS: CREATININE 0.8 mg/dL (0.6-1.3); PHOSPHOROUS 3.4 mg/dL (2.5-4.9); POTASSIUM 3.9 mmol/L (3.5-5.1)
--- NOTE | 2019-02-21 06:15 | NUR ---
Am care done. Up in chair. Tolerated care well without SOB.
[2019-02-21] MEDS: PANTOPRAZOLE SODIUM 40 MG TABLET.DR PO SCH (06:16)
[2019-02-21] MEDS: LEVOTHYROXINE SODIUM 75 MCG TABLET PO SCH (06:16)
[2019-02-21 07:19] LABS: BAND % (MANUAL) 3 % (0-10); EOSINOPHILS % (MANUAL) 3 % (0-8); LYMPHOCYTES % (MANUAL) 11 % (20-40); MONOCYTES % (MANUAL) 17 % (2-10); NEUTROPHILS % (MANUAL) 66 % (42-75)
[2019-02-21] MEDS: BUDESONIDE 0.5 MG/2 ML NEBU NEB SCH ×2 (07:21→19:16)
--- NOTE | 2019-02-21 08:46 | NUR ---
Dr. Olea and [employer] Rodger Harris here to see pt. Full report given. New orders received.
[2019-02-21] MEDS: AMIODARONE HCL 200 MG TABLET PO SCH ×2 (08:52→20:59)
[2019-02-21] MEDS: FOLIC ACID 1 MG TABLET PO SCH (08:52)
[2019-02-21] MEDS: ENSURE WITH FIBER 237 ML LIQUID (CHOCOLATE) PO SCH ×3 (08:52→16:32)
[2019-02-21] MEDS: CULTURELLE CAPSULE PO SCH ×2 (08:52→20:58)
[2019-02-21] MEDS: POTASSIUM CHLORIDE 20 MEQ TAB.PRT.SR PO SCH (08:52)
[2019-02-21] MEDS: FUROSEMIDE 40 MG/4 ML VIAL IV SCH (08:56)
[2019-02-21] MEDS: NYSTATIN SUSPENSION 5 ML LIQUID UDC PO SCH ×4 (08:56→21:36)
[2019-02-21] MEDS: METOPROLOL TARTRATE 25 MG TABLET PO SCH ×2 (08:56→21:00)
[2019-02-21] MEDS: DOXYCYCLINE HYCLATE 100 MG TABLET PO SCH (08:56)
--- NOTE | 2019-02-21 09:15 | NUR ---
Consent for left US guided thoracentesis signed by the . Pt and alert and oriented during our conversation and their conversation with Dr. Olea and are aware of the procedure to be done.
--- NOTE | 2019-02-21 15:02 | NUR ---
Dr. Lovell here to see pt for left guided thoracentesis. here with US tech at the bedside. Pt awake and aware of the procedure to be done.
--- NOTE | 2019-02-21 15:13 | NUR ---
Left US guided thoracentesis completed. 400ml of orange-reddish thoracentesis fluid removed. VSS wnl. Pt stable and nad noted upon completion of the procedure.
--- NOTE | 2019-02-21 15:25 | NUR ---
Xray completed and reviewed by Dr. Lovell at the bedside. Pt tolerated procedure well and no complications noted per MD. Repeat CXR to be done at 1900.
[2019-02-21] MEDS ORDERED: MORPHINE SULFATE 2 MG/1 ML DISP.SYRIN IM PRN (16:45)
[2019-02-21] MEDS ORDERED: MORPHINE SULFATE 2 MG/1 ML DISP.SYRIN IV PRN (16:45)
--- NOTE | 2019-02-21 19:30 | NUR ---
rounds made patient in bed aaox4/ maex4,no respiratory distress noted breathing even and unlabored on 02 at 6 l/min saturation 98 % and rr 18 to 20.denies pain when asked .checked post op thoracentesis site right and left posterior back site with bandage cdi . no s/s of hematoma no bleeding .call light placed with in reach , patient came and updated with patient condition .
--- NOTE | 2019-02-21 19:45 | NUR ---
dictated chest xray result to DHARA CHOUDHARY , and with orders to continue to monitor patient in ccu .
--- NOTE | 2019-02-21 20:30 | NUR ---
assisted oob to the bedside commode, steady of gait voided .back to bed .
--- NOTE | 2019-02-21 22:30 | NUR ---
patient requesting bp not to be taken q1 hour as per patient she cannot sleep bp monitoring frequently advised she is in ccu and its a protocol to do v/s q1 hourly .
--- NOTE | 2019-02-21 23:15 | NUR ---
notice patient not sleeping ,asked if she needs sleeping medication or pain medication she said no she dont need any medication . just thinking about tomorrow possible d/c back home to [place] via car patient son is coming to drive her back to [place] .
[2019-02-22] VITALS: BP 98/47
--- NOTE | 2019-02-22 01:00 | NUR ---
refusing bp monitoring as per patient she cannot sleep .
[2019-02-22 04:00] VITALS: BP 108/53
--- NOTE | 2019-02-22 04:27 | NUR ---
assisted to bedside commode voided and situated back to bed . offered MRSA nasal swab patient refused since shes going home today.
[2019-02-22 05:18] LABS: BASOPHILS # (AUTO) 0.1 K/uL (0.0-8.0); BASOPHILS % (AUTO) 0.6 % (0.0-2.0); EOSINOPHILS # (AUTO) 0.3 K/uL (0.0-0.7); EOSINOPHILS % (AUTO) 3.2 % (0.0-7.0); HEMATOCRIT 27.2 % (31.2-41.9); LYMPHOCYTES # (AUTO) 1.3 K/uL (20.0-40.0); LYMPHOCYTES % (AUTO) 15.4 % (20.5-51.5); MEAN CORPUSCULAR HEMOGLOBIN 31.9 uug (24.7-32.8); MEAN CORPUSCULAR HGB CONC 33 g/dL (32.3-35.6); MEAN CORPUSCULAR VOLUME 96.6 fL (75.5-95.3); MONOCYTES # (AUTO) 1.5 K/uL (2.0-10.0); NEUTROPHILS # (AUTO) 5.5 K/uL (1.8-8.9); NEUTROPHILS % (AUTO) 63.8 % (38.5-71.5); PLATELET COUNT (AUTO) 324 K/uL (179-408); RED BLOOD CELL COUNT(AUTO) 2.81 MIL/uL (3.63-4.92); WHITE BLOOD COUNT (AUTO) 8.6 K/uL (3.8-11.8)
[2019-02-22 05:35] LABS: CREATININE 0.8 mg/dL (0.6-1.3); MAGNESIUM 1.6 mg/dL (1.8-2.4); PHOSPHOROUS 3.9 mg/dL (2.5-4.9)
[2019-02-22 06:00] VITALS: BP 126/88
[2019-02-22 06:14] LABS: EOSINOPHILS % (MANUAL) 4 % (0-8); LYMPHOCYTES % (MANUAL) 11 % (20-40); MONOCYTES % (MANUAL) 16 % (2-10); NEUTROPHILS % (MANUAL) 69 % (42-75)
--- NOTE | 2019-02-22 06:15 | NUR ---
am care done changed soiled linens and gown patient able to help with am care . oral care done by patient .requested for something to eat given cheerios and yogurt patient able to feed self .
[2019-02-22] MEDS: LEVOTHYROXINE SODIUM 75 MCG TABLET PO SCH (06:33)
[2019-02-22] MEDS: PANTOPRAZOLE SODIUM 40 MG TABLET.DR PO SCH (06:33)
[2019-02-22] MEDS: BUDESONIDE 0.5 MG/2 ML NEBU NEB SCH (07:30)
[2019-02-22 08:00] VITALS: BP 98/52
[2019-02-22] MEDS: ENSURE WITH FIBER 237 ML LIQUID (CHOCOLATE) PO SCH (08:00)
--- NOTE | 2019-02-22 08:04 | NUR ---
Dr. Olea here to see pt. Full report given. New orders received.
[2019-02-22] MEDS: CULTURELLE CAPSULE PO SCH (08:20)
[2019-02-22] MEDS: METOPROLOL TARTRATE 25 MG TABLET PO SCH (08:20)
[2019-02-22] MEDS: FOLIC ACID 1 MG TABLET PO SCH (08:20)
[2019-02-22] MEDS: AMIODARONE HCL 200 MG TABLET PO SCH (08:20)
[2019-02-22] MEDS: FUROSEMIDE 40 MG/4 ML VIAL IV SCH ×2 (08:21→08:41)
[2019-02-22] MEDS: NYSTATIN SUSPENSION 5 ML LIQUID UDC PO SCH (08:23)
[2019-02-22] MEDS ORDERED: NYST5ORA PO (08:56)
[2019-02-22] MEDS ORDERED: AMIO200T6 PO (08:56)
[2019-02-22 09:00] VITALS: BP 98/52
[2019-02-22] MEDS ORDERED: APIXABAN 5 MG TABLET PO SCH (09:00)
--- NOTE | 2019-02-22 10:18 | NUR ---
Pt discharged to home with and son via wheelchair. Discharge instructions provided and discussed with the pt and . Meds reconciled by MD and reviewed with pt and . Pt and verbalized understanding of discharge instructions and medications. Pt discharged with MITCHELL PICC line. VSS wnl. Pt tolerating room air and saturating 96% wnl during rest and activity. Pt stable and nad noted upon discharge.
== END 2019-02-22 10:20 | disposition home or self-care (01) | DRG 280 ==
LOC: ER 12:58 → CCU 18:55
PROVIDERS: ADMIT Internal Medicine; ATTEND Internal Medicine
PROC: 3E033RZ Introduction of Antiarrhythmic into Peripheral Vein, Percutaneous Approach (ICD-10-PCS; principal; 2019-02-16)
PROC: 02HV33Z Insertion of Infusion Device into Superior Vena Cava, Percutaneous Approach (ICD-10-PCS; 2019-02-18)
PROC: 0W993ZX Drainage of Right Pleural Cavity, Percutaneous Approach, Diagnostic (ICD-10-PCS; 2019-02-19)
PROC: 0W9B3ZX Drainage of Left Pleural Cavity, Percutaneous Approach, Diagnostic (ICD-10-PCS; 2019-02-21)
DX: I50.33 Acute on chronic diastolic (congestive) heart failure (principal); I21.A1 Myocardial infarction type 2; J96.01 Acute respiratory failure with hypoxia; C34.92 Malignant neoplasm of unspecified part of left bronchus or lung; J91.8 Pleural effusion in other conditions classified elsewhere; R04.2 Hemoptysis; J95.811 Postprocedural pneumothorax; E87.1 Hypo-osmolality and hyponatremia; C34.91 Malignant neoplasm of unspecified part of right bronchus or lung; N39.0 Urinary tract infection, site not specified; J98.11 Atelectasis; I48.0 Paroxysmal atrial fibrillation; Z90.2 Acquired absence of lung [part of]; Z85.72 Personal history of non-Hodgkin lymphomas; Y84.4 Aspiration of fluid as the cause of abnormal reaction of the patient, or of later complication, without mention of misadventure at the time of the procedure; Y92.238 Other place in hospital as the place of occurrence of the external cause; D72.829 Elevated white blood cell count, unspecified; T38.0X5A Adverse effect of glucocorticoids and synthetic analogues, initial encounter; Y92.039 Unspecified place in apartment as the place of occurrence of the external cause; I08.3 Combined rheumatic disorders of mitral, aortic and tricuspid valves; J84.10 Pulmonary fibrosis, unspecified; E03.9 Hypothyroidism, unspecified; K21.9 Gastro-esophageal reflux disease without esophagitis; F41.9 Anxiety disorder, unspecified; Z92.3 Personal history of irradiation; I27.29 Other secondary pulmonary hypertension; J44.9 Chronic obstructive pulmonary disease, unspecified; Z86.73 Personal history of transient ischemic attack (TIA), and cerebral infarction without residual deficits; Z90.81 Acquired absence of spleen; Z92.21 Personal history of antineoplastic chemotherapy; Z95.2 Presence of prosthetic heart valve; I44.7 Left bundle-branch block, unspecified; E87.6 Hypokalemia; B37.9 Candidiasis, unspecified; F32.9 Major depressive disorder, single episode, unspecified; D53.9 Nutritional anemia, unspecified
CPT/HCPCS: 32555; 36415; 36569; 36600; 70030-TC; 71045; 76604; 83605; 83615; 83735; 83986; 84100; 84155; 84443; 85025; 85730; 87040; 87070; 87086; 87205; 93005; 93307; 94640; A4663; G0378; J0282; J0696; J1160; J1940; J2001; J2060; J2405; J3475; J3480; J3490; J7050; J7060